=== PATIENT | male | born 1980 | race Caucasian/White ===

== ENCOUNTER 2016-10-26 21:43 | Emergency (ER) | payer MEDICAID ==
[2016-10-26 21:48] VITALS: BP 151/97; PULSE 75; RESP 18; TEMP 98.6; O2SAT 98
[2016-10-26] MEDS: predniSONE 20 MG TAB PO ONE (22:24)
[2016-10-26] MEDS: FAMOTIDINE 20 MG TAB PO ONE (22:24)
--- NOTE | 2016-10-26 22:24 | EDPHY ---
H & P Time Seen by Provider: 10/26/16 22:14 HPI/ROS: CHIEF COMPLAINT: Left wrist swelling HISTORY OF PRESENT ILLNESS: Patient had bee sting yesterday on his left wrist. Today presents with redness and swelling as well as itching and burning of the skin. Normal range of motion of the wrist and finger joints. Sensation and motor preserved. REVIEW OF SYSTEMS: No fever or chills PAST MEDICAL HISTORY: Bipolar on lithium General Appearance: Alert and conversant, cooperative. Patient has a insect bite punctum on the ulnar side of the dorsum of his left hand. He has swelling and redness to the mid forearm. It is not painful to palpation. No blisters. No lymphangitis. No fever. Normal motor sensory and capillary refill distally. No fluctuance. Emergency Department course/MDM: Patient presents with severe local allergic reaction. It is not painful to palpation, afebrile. No lymphangitis. I do not think this is cellulitis. He took Benadryl already today twice. He is encouraged to continue that, use cold compresses, start him on H2 zelda for 48 hours as well as 3 days oral prednisone. Smoking Status: Heavy smoker Constitutional: Initial Vital Signs Temperature (C) 37.0 C 10/26/16 21:45 Heart Rate 75 10/26/16 21:45 Respiratory Rate 18 10/26/16 21:45 Blood Pressure 151/97 H 10/26/16 21:45 O2 Sat (%) 98 10/26/16 21:45 O2 Delivery Mode Room Air Allergies/Adverse Reactions: No Known Allergies Allergy (Verified 10/26/16 21:48) Home Medications: Medication Instructions Recorded [place] Carbonate [[place] 900 mg PO HS 14 Days tab 02/14/14 Carbonate Tab 300 mg (*)] Famotidine [Pepcid] 20 mg PO BID #4 tab 10/26/16 predniSONE [prednisone 20mg (RX)] 60 mg PO DAILY 2 Days tab 10/26/16 MDM/Departure - Depart Disposition: Home, Routine, Self-Care Clinical Impression: Insect bite Qualifiers: Encounter type: initial encounter Qualified Code(s): W57.XXXA - Bitten or stung by nonvenomous insect and other nonvenomous arthropods, initial encounter Condition: Good Instructions: Prednisone (By mouth), Diphenhydramine (By mouth) Additional Instructions: Oral Benadryl 50 mg every 6-8 hours for the next 3 days. Please return if you get fever or chills, severe pain, worsening swelling. Prescriptions: Famotidine [Pepcid] 20 mg PO BID #4 tab predniSONE [prednisone 20mg (RX)] 60 mg PO DAILY 2 Days tab Referrals: Renetta Navarrete MD [Medical Doctor] - As per Instructions
== END 2016-10-26 22:30 | disposition home or self-care (01) ==
DX: T63.441A Toxic effect of venom of bees, accidental (unintentional), initial encounter (principal); F17.200 Nicotine dependence, unspecified, uncomplicated

== ENCOUNTER 2017-12-29 07:06 | Day surgery (SDC) | payer MEDICAID ==
[2017-12-29] MEDS ORDERED: MIDAZOLAM 2 MG/2 ML VIAL IVP ONE (07:29)
--- NOTE | 2017-12-29 07:31 | PDANEPAE ---
ANE History of Present Illness 37 y/o male here for hydrocelectomy. PMH sig for bipolar disorder. ANE Past Medical History - Cardiovascular History Hx Hypertension: No Hx Arrhythmias: No Hx Chest Pain: No Hx Coronary Artery / Peripheral Vascular Disease: No Hx CHF / Valvular Disease: No Hx Palpitations: No - Pulmonary History Hx COPD: No Hx Asthma/Reactive Airway Disease: No Hx Recent Upper Respiratory Infection: No Hx Oxygen in Use at Home: No Hx Sleep Apnea: No Sleep Apnea Screening Result - Last Documented: Negative Pulmonary History Comment: Current smoker 1 pack every 3 days - Neurologic History Hx Cerebrovascular Accident: No Hx Seizures: No Hx Dementia: No - Endocrine History Hx Diabetes: No - Renal History Hx Renal Disorders: No - Liver History Hx Hepatic Disorders: No - Neurological & Psychiatric Hx Hx Neurological and Psychiatric Disorders: Yes Neurological / Psychiatric History Comment: hx of depression, bipolar disorder - Cancer History Hx Cancer: No - Congenital Disorder History Hx Congenital Disorders: No - GI History GERD: no Hx Gastrointestinal Disorders: No Gastrointestinal History Comment: hx of hernia repair - Other Health History Other Health History: n/a - Chronic Pain History Chronic Pain: No - Surgical History Prior Surgeries: 06/2017 hernia surgery. tubes in ears as child ANE Review of Systems Review of Systems: - Exercise capacity Exercise capacity: >=4 METS METS (RN): 4 METS ANE Patient History - Allergies Allergies/Adverse Reactions: No Known Allergies Allergy (Verified 12/29/17 07:50) - Home Medications Home medications: home medication list seen and reviewed Home Medications: NK [No Known Home Meds] 12/28/17 [Last Taken Unknown] - NPO status NPO Status: no food or drink >8 hours - Anes Hx Anes Hx: no prior problems Hx Anesthesia Complications (with details): Emergence delirium - Smoking Hx Smoking Status: Heavy smoker Marijuana use: Yes - Alcohol Use Alcohol Use: Occasionally - Family Anes Hx Family Anes Hx: none Family Hx Anesthesia Complications: none ANE Labs/Vital Signs - Vital Signs Vital Signs: reviewed preoperatively; see RN documention for details Height: 180.34 cm Weight: 74.843 kg ANE Physical Exam - Airway Mallampati Score: Class 2 Mouth exam: normal dental/mouth exam, boone - Pulmonary Pulmonary: no respiratory distress, clear to auscultation - Cardiovascular Cardiovascular: regular rate and rhythym - ASA Status ASA Status: II ANE Anesthesia Plan Anesthesia Plan: GA w LMA
[2017-12-29] MEDS ORDERED: LIDOCAINE 1% 2 ML INJ ID PRN (07:39)
[2017-12-29] MEDS ORDERED: LR 1,000 ML IV ONE (07:39)
[2017-12-29] MEDS ORDERED: ceFAZolin 2 GM/DEXTROSE 100 ML IV ONE (07:49)
[2017-12-29] MEDS ORDERED: DEXMEDETOMIDINE HCL 400 MCG in NS 100 ML IV ONE (08:00)
--- NOTE | 2017-12-29 08:00 | PDGENHP ---
History and Physical History and Physical: 37 y m with hx of lap BIH repair now with R hydrocele. PMH: denies. PSH: BIH repair Med: Denies. All: NKDA gen: alert, nad heent: ncat chest: ctab cor: rrr abd: soft, nt gen: +R peritesticular swelling AP: R hydrocele. Open R hydrocelectomy. Risks and options discussed.
[2017-12-29] MEDS ORDERED: fentaNYL 100 MCG/2 ML INJ ONE (08:10)
[2017-12-29] MEDS ORDERED: PROPOFOL 200 MG/20 ML VIAL ONE ×2 (08:10)
[2017-12-29] MEDS ORDERED: BUPIVACAINE 0.5% 30 ML SDV ONE (08:25)
[2017-12-29] MEDS ORDERED: KETOROLAC 30 MG/1 ML SDV ONE (09:01)
[2017-12-29] MEDS ORDERED: DEXAMETHASONE 4 MG/ML VIAL ONE (09:01)
[2017-12-29] MEDS ORDERED: ONDANSETRON 4 MG/2 ML VIAL ONE (09:01)
[2017-12-29] MEDS ORDERED: PROMETHAZINE HCL 25 MG/ML INJ IVP PRN (09:19)
[2017-12-29] MEDS ORDERED: MEPERIDINE 25 MG/0.5 ML AMP IVP PRN (09:19)
[2017-12-29] MEDS ORDERED: fentaNYL 100 MCG/2 ML INJ IVP PRN (09:19)
[2017-12-29] MEDS ORDERED: LR 500 ML IV PRN (09:19)
[2017-12-29] MEDS ORDERED: METOCLOPRAMIDE 10 MG/2 ML VIAL IVP PRN (09:19)
[2017-12-29] MEDS ORDERED: ALBUTEROL 3 ML DEYVIAL IH PRN (09:19)
[2017-12-29] MEDS ORDERED: LABETALOL HCL 5 MG/ML 20 ML MDV IVP PRN (09:19)
[2017-12-29] MEDS ORDERED: ONDANSETRON 4 MG/2 ML VIAL IVP PRN (09:19)
[2017-12-29] MEDS ORDERED: HYDROmorphONE/DILAUDID 2 MG/ML INJ IVP PRN (09:19)
[2017-12-29] MEDS ORDERED: NALOXONE HCL 0.4 MG/ML INJ IVP PRN (09:19)
[2017-12-29] MEDS ORDERED: oxyCODONE IR 5 MG TAB PO PRN (09:19)
[2017-12-29] MEDS ORDERED: DIAZEPAM 5 MG/ML 1 ML SYR IVP PRN (09:19)
[2017-12-29] MEDS ORDERED: ACETAMINOPHEN 500 MG TAB PO PRN (09:19)
[2017-12-29] MEDS ORDERED: GLYCOPYRROLATE 0.2 MG/1 ML VIAL ONE (09:40)
--- NOTE | 2017-12-29 09:49 | POSTOPPROG ---
Post Op Note Date of Operation: 12/29/17 Surgeon: Vahid Hahn Head Of Acquisitions: Eileen Damian Anesthesiologist: Bel Medeiros Anesthesia: GET(General Endotracheal) Pre-op Diagnosis: R hydrocele Post-op Diagnosis: same Procedure: open R hydrocelectomy Findings: large fluid filled sac Inf/Abcess present in the surg proc area at time of surgery?: No EBL: Minimal Complications: none Specimen(s): hydrocele sac
[2017-12-29 11:22] VITALS: BP 119/79
--- NOTE | 2017-12-29 11:49 | POSTANESTH ---
Post Anesthetic Evaluation Cardiovascular Status: Normal, Stable Respiratory Status: Normal, Stable Level of Consciousness/Mental Status: Can Participate in Eval Pain Control: Adequate, Prn Tx Ordered Nausea/Vomiting Control: Adequate, Prn Tx Ordered Complications Possibly Related to Anesthesia: None Noted
--- NOTE | 2018-01-02 16:09 | GOP ---
DATE OF OPERATION: 12/29/2017 SURGEON: Vahid Hahn MD SENIOR PROJECT LEADER/TEAM LEAD: Eileen Damian, BENNY. PREOPERATIVE DIAGNOSIS: Right hydrocele. POSTOPERATIVE DIAGNOSIS: Right hydrocele. PROCEDURE PERFORMED: Right hydrocelectomy. FINDINGS: Patient was found to have a large 7 cm hydrocele of the cord in the upper scrotum. DESCRIPTION OF PROCEDURE: The patient was taken to the operating room where he received a satisfacto ry general endotracheal anesthesia. He was placed in supine position and prepped and draped in the u sual sterile fashion. A short incision was made in the distal inguinal canal extending in the upper portion of the scrotum, and it was carried down through the subcutaneous tissue. The cord was then m obilized from the floor of the canal outside the external ring, and the hydrocele was delivered up in to the incision. The testes were dissected free. The hydrocele was completely exposed along with th e cord and testicle. After adequate clearance, the hydrocele was opened, its contents were suctioned free, and then the excess hydrocele sac was excised. Hemostasis was obtained with electrocautery. The sac was wrapped posteriorly around the cord structures with interrupted 3-0 Vicryl sutures. Hemo stasis was assured. A 15 round silicone SANCHEZ drain was brought out through a separate stab incision an d placed in the scrotum. The wound was then closed with a running 3-0 Vicryl suture for the subcutan eous tissue and a 4-0 Monocryl subcuticular stitch for the skin. All layers were infiltrated with 0. 5% Marcaine. Blood loss negligible. Taken to recovery room in good condition. /[id number]/MODL
== END 2017-12-29 11:31 | disposition home or self-care (01) ==
LOC: FSGY 07:06
PROVIDERS: ATTEND Surgery
PROC: 0VBF0ZZ Excision of Right Spermatic Cord, Open Approach (ICD-10-PCS; principal; 2017-12-29 08:30)
DX: N43.2 Other hydrocele (principal)
CPT/HCPCS: J0690; J1100; J1885; J2250; J2405; J2704; J3010